=== PATIENT | female | born 1955 ===

== ENCOUNTER 2023-12-06 06:00 | Outpatient (RCR) | payer MEDICARE, SELFPAY | END 2023-12-30 23:59 | disposition home or self-care (01) | LOC: MPT 06:00 | PROVIDERS: Visit Provider Nurse Practitioner Family | DX: M25.561 Pain in right knee (principal); M25.531 Pain in right wrist | CPT/HCPCS: 97110; 97112; 97162 ==

== ENCOUNTER 2023-12-31 06:00 | Outpatient (RCR) | payer MEDICARE, SELFPAY | END 2024-01-29 23:59 | disposition home or self-care (01) | LOC: MPT 06:00 | PROVIDERS: Visit Provider Nurse Practitioner Family | DX: M25.561 Pain in right knee (principal); M25.531 Pain in right wrist | CPT/HCPCS: 97110; 97530 ==

== ENCOUNTER 2024-01-30 06:00 | Outpatient (RCR) | payer MEDICARE, SELFPAY | END 2024-02-29 23:59 | disposition home or self-care (01) | LOC: MPT 06:00 | PROVIDERS: Visit Provider Nurse Practitioner Family | DX: M25.561 Pain in right knee (principal); M25.531 Pain in right wrist | CPT/HCPCS: 97110 ==